=== PATIENT | female | born 1990 | race Caucasian/White ===

== ENCOUNTER 2018-02-08 08:10 | Outpatient (CLI) | payer MEDICAID ==
--- NOTE | 2018-02-08 09:10 | Ultrasound Report ---
Reason: TEST POSITIVE Procedure Date: 02/08/2018 Accession Number: [id number] / [id number] Procedure: US - OB First Trimester CPT Code: FULL RESULT: EXAM: FIRST TRIMESTER OBSTETRIC ULTRASOUND (Less than 11 weeks) EXAM DATE: 02/08/2018 08:56 AM. CLINICAL HISTORY: TEST POSITIVE. LMP: 12/15/2017. COMPARISONS: None. TECHNIQUE: Transabdominal and transvaginal ultrasound examination with static image documentation. CLINICAL DATES: EGA 7 weeks 6 days with LISA 09/21/2018 based on LMP. ASSESSMENT: Gestational Sac: Single intrauterine. Normal shape. Mean gestational sac diameter: 17.4 mm = 6 weeks 0 days. Embryo: CRL (crown-rump length) 10.8 mm = 7 weeks 1 day (LISA 09/26/2018). Cardiac activity: 137 beats per minute. Yolk sac: 3.2 mm. Amniotic fluid: Not accurately assessed at this gestational age. Early placenta: Not visible at this gestational age. Other: There is a small perigestational fluid collection measuring 21 x 3 x 11 mm. MATERNAL STRUCTURES: Uterus: Anteverted. Unremarkable. Cervix: Closed. Right Ovary/Adnexa: The ovary measures 3.5 x 2.7 x 2.4 cm, volume 11.9 cc. Simple appearing cyst measuring 2.5 cm. Left Ovary/Adnexa: The ovary measures 1.8 x 1.8 x 1.5 cm, volume 2.5 cc. Unremarkable. Free Fluid: Trace free pelvic fluid may be physiologic. Other: None. IMPRESSION: 1. Single viable intrauterine at EGA 7 weeks 1 day with LISA 09/26/2018 based on crown-rump length, which is concordant with clinical dates (EGA 7 weeks 6 days, LISA 09/21/2018 by LMP). 2. Assigned dating is LISA 09/21/2018 based on LMP. 3. Perigestational fluid collection is seen measuring 21 x 3 x 11 mm. RADIA
== END 2018-02-08 08:11 | disposition home or self-care (01) ==
LOC: DI 08:10
PROVIDERS: ATTEND Nurse Practitioner Obstetrics & Gynecology
DX: Z32.01 Encounter for pregnancy test, result positive (principal); Z3A.01 Less than 8 weeks gestation of pregnancy
CPT/HCPCS: 76801; 76817

== ENCOUNTER 2018-02-27 08:00 | Outpatient (CLI) | payer MEDICAID ==
[2018-02-27 18:29] LABS: MUDS CUTOFF CONCENTRATIONS CUTOFF CONC BELOW:
[2018-02-27 18:55] LABS: AMPHETAMINE SCREEN,URINE NEGATIVE (NEGATIVE); BENZODIAZEPINES SCREEN, URINE NEGATIVE (NEGATIVE); COCAINE SCREEN URINE NEGATIVE (NEGATIVE); METHADONE SCREEN, URINE NEGATIVE (NEGATIVE); METHAMPHETAMINES SCREEN, URINE NEGATIVE (NEGATIVE); OPIATE SCREEN, URINE NEGATIVE (NEGATIVE); TRICYCLIC ANTIDEPRESSANT,URINE NEGATIVE (NEGATIVE)
[2018-02-27 18:56] LABS: OXYCODONE SCREEN, URINE NEGATIVE (NEGATIVE); PROPOXYPHENE SCREEN, URINE NEGATIVE (NEGATIVE)
== END 2018-02-27 23:59 | disposition home or self-care (01) ==
LOC: LAB.R 08:00
PROVIDERS: ATTEND Nurse Practitioner Obstetrics & Gynecology
DX: Z36.89 Encounter for other specified antenatal screening (principal)
CPT/HCPCS: 80306; 87491; 87591

== ENCOUNTER 2018-02-27 11:12 | Outpatient (CLI) | payer MEDICAID ==
[2018-02-27 11:50] LABS: BASOPHILS # (AUTO) 0.1 10^3/uL (0.0-0.1); BASOPHILS % (AUTO) 0.6 %; EOSINOPHILS % (AUTO) 0.3 %; HGB - HEMOGLOBIN 14.9 g/dL (12.0-16.0); LYMPHOCYTES # (AUTO) 2.6 10^3/uL (1.5-3.5); LYMPHOCYTES % (AUTO) 25.8 %; MEAN CORPUSCULAR HEMOGLOBIN 31.6 pg (27.0-31.0); MEAN CORPUSCULAR HGB CONC 35.5 g/dL (32.0-36.0); MONOCYTES # (AUTO) 0.4 10^3/uL (0.0-1.0); NEUTROPHILS # (AUTO) 7.1 10^3/uL (1.5-6.6); NEUTROPHILS % (AUTO) 69.3 %; PLT - PLATELET COUNT 295 10^3/uL (130-450); RED BLOOD COUNT 4.71 10^6/uL (4.20-5.40); RED CELL DISTRIBUTION WIDTH 12.9 % (12.0-15.0); WHITE BLOOD COUNT 10.2 x10^3/uL (4.8-10.8)
[2018-02-27 11:58] LABS: BILIRUBIN,URINE NEGATIVE (NEGATIVE); GLUCOSE, URINE (UA) NEGATIVE (NEGATIVE); KETONES,URINE (UA) NEGATIVE (NEGATIVE); LEUKOCYTE ESTERASE, URINE NEGATIVE (NEGATIVE); NITRITE,URINE NEGATIVE (NEGATIVE); OCCULT BLOOD,URINE NEGATIVE (NEGATIVE); PH,URINE 5.5 PH (5.0-7.5); PROTEIN,URINE NEGATIVE (NEGATIVE); UROBILINOGEN,URINE 0.2 (NORMAL) E.U./dL (NORMAL)
[2018-02-27 12:04] LABS: CLARITY,URINE CLEAR (CLEAR)
[2018-02-27 12:06] LABS: HB2 TOTAL 16.3 g/dL; HEMOGLOBIN A1C 0.46 g/dL; HEMOGLOBIN A1C % 4.7 % (4.6-6.2)
[2018-02-28 11:05] LABS: HIV AG/AB 4TH GEN NON-REACTIVE (NON-REACTIVE)
[2018-03-02 15:38] LABS: HEPATITIS B SURFACE ANTIGEN NON-REACTIVE (NON-REACTIVE); HEPATITIS C ANTIBODY NON-REACTIVE (NON-REACTIVE)
== END 2018-02-27 11:13 | disposition home or self-care (01) ==
LOC: LAB 11:12
PROVIDERS: ATTEND Nurse Practitioner Obstetrics & Gynecology
DX: Z36.89 Encounter for other specified antenatal screening (principal)
CPT/HCPCS: 36415; 80306; 81001; 81003; 81599; 83036; 85025; 86762; 86803; 86850; 86900; 86901; 87086; 87340; 87389; 87491; 87591

== ENCOUNTER 2018-04-17 08:00 | Outpatient (CLI) | payer MEDICAID | END 2018-04-17 23:59 | LOC: LAB.R 08:00 | PROVIDERS: ATTEND Registered Nurse | DX: O46.92 Antepartum hemorrhage, unspecified, second trimester (principal) | CPT/HCPCS: 87491; 87591 ==

== ENCOUNTER 2018-07-30 16:20 | Outpatient (CLI) | payer MEDICAID ==
[2018-07-30 18:00] LABS: BASOPHILS % (AUTO) 0.5 %; EOSINOPHILS % (AUTO) 0.4 %; HGB - HEMOGLOBIN 12.7 g/dL (12.0-16.0); LYMPHOCYTES # (AUTO) 2.9 10^3/uL (1.5-3.5); LYMPHOCYTES % (AUTO) 27.6 %; MEAN CORPUSCULAR HEMOGLOBIN 29.4 pg (27.0-31.0); MEAN CORPUSCULAR HGB CONC 33.4 g/dL (32.0-36.0); MEAN PLATELET VOLUME 7.9 fL (7.9-10.8); MONOCYTES # (AUTO) 0.7 10^3/uL (0.0-1.0); MONOCYTES % (AUTO) 6.4 %; NEUTROPHILS # (AUTO) 6.9 10^3/uL (1.5-6.6); NEUTROPHILS % (AUTO) 65.1 %; PLT - PLATELET COUNT 369 10^3/uL (130-450); RED CELL DISTRIBUTION WIDTH 13.3 % (12.0-15.0); WHITE BLOOD COUNT 10.6 x10^3/uL (4.8-10.8)
[2018-07-30 18:11] LABS: ALBUMIN 2.7 g/dL (3.2-5.5); ALBUMIN/GLOBULIN RATIO 0.7 (1.0-2.2); BILIRUBIN,TOTAL 0.3 mg/dL (0.2-1.0); CALCIUM 9.1 mg/dL (8.5-10.3); CREATININE 0.6 mg/dL (0.4-1.0); TOTAL PROTEIN 6.8 g/dL (6.7-8.2)
== END 2018-07-30 16:21 | disposition home or self-care (01) ==
LOC: LAB 16:20
PROVIDERS: ATTEND Registered Nurse
DX: O26.899 Other specified pregnancy related conditions, unspecified trimester (principal); R03.0 Elevated blood-pressure reading, without diagnosis of hypertension
CPT/HCPCS: 36415; 80053; 82950; 85025; 86850

== ENCOUNTER 2018-08-05 13:44 | Outpatient (CLI) | payer MEDICAID ==
[2018-08-05 14:40] LABS: CREATININE,URINE 70.6 mg/dL
== END 2018-08-05 13:45 | disposition home or self-care (01) ==
LOC: LAB 13:44
PROVIDERS: ATTEND Registered Nurse
DX: R03.0 Elevated blood-pressure reading, without diagnosis of hypertension (principal)
CPT/HCPCS: 82570; 84156

== ENCOUNTER 2018-08-26 08:00 | Outpatient (CLI) | payer MEDICAID | END 2018-08-26 23:59 | disposition home or self-care (01) | LOC: LAB.R 08:00 | PROVIDERS: ATTEND Nurse Practitioner Obstetrics & Gynecology | DX: Z36.85 Encounter for antenatal screening for Streptococcus B (principal) | CPT/HCPCS: 87797 ==

== ENCOUNTER 2018-09-24 02:09 | Inpatient (IN) | payer SELFPAY ==
[2018-09-24] MEDS ORDERED: SODIUM CHLORIDE FLUSH 0.9% 10 ML SYRINGE IVP PRN (04:25)
[2018-09-24] MEDS ORDERED: AMPICILLIN 2 GM in SODIUM CHLORIDE 0.9% MINIBAG 100 ML IV ONE (04:25)
[2018-09-24] MEDS ORDERED: LACTATED RINGERS 1,000 ML IV ONE (04:31)
[2018-09-24 04:41] LABS: BASOPHILS % (AUTO) 0.2 %; EOSINOPHILS % (AUTO) 0.2 %; HGB - HEMOGLOBIN 13.6 g/dL (12.0-16.0); LYMPHOCYTES % (AUTO) 30.1 %; MEAN CORPUSCULAR HEMOGLOBIN 29.7 pg (27.0-31.0); MEAN CORPUSCULAR HGB CONC 33.6 g/dL (32.0-36.0); MEAN CORPUSCULAR VOLUME 88.4 fL (81.0-99.0); MEAN PLATELET VOLUME 10.6 fL (7.9-10.8); MONOCYTES # (AUTO) 0.7 10^3/uL (0.0-1.0); NEUTROPHILS # (AUTO) 8.5 10^3/uL (1.5-6.6); NEUTROPHILS % (AUTO) 63.9 %; PLT - PLATELET COUNT 248 10^3/uL (130-450); RED BLOOD COUNT 4.58 10^6/uL (4.20-5.40); RED CELL DISTRIBUTION WIDTH 13.1 % (12.0-15.0); WHITE BLOOD COUNT 13.2 x10^3/uL (4.8-10.8)
[2018-09-24] MEDS ORDERED: OXYTOCIN/SODIUM CHLORIDE 500 ML IV ONE (04:46)
[2018-09-24] MEDS ORDERED: LACTATED RINGERS 1,000 ML IV SCH (05:00)
[2018-09-24] MEDS ORDERED: fent/BUPIV 2 MCG/0.125% 250 ML EP ONE (05:04)
--- NOTE | 2018-09-24 05:08 | ANESTHESIA ---
Pre-Anesthesia VS, & Labs - Diagnosis active labor - Procedure labor epidural Vital Signs: Temp Pulse Resp BP Pulse Ox 36.7 C 86 16 132/82 H 100 09/24/18 02:20 09/24/18 02:20 09/24/18 02:20 09/24/18 02:20 09/24/18 02:20 Height 5 ft 2 in Weight (kg) 99.337 kg - NPO >8 hours - Is Patient ?: Yes - Lab Results Current Lab Results: Laboratory Tests 09/24/18 04:33: WBC 13.2 H, RBC 4.58, Hgb 13.6, Hct 40.5, MCV 88.4, MCH 29.7, MCHC 33.6, RDW 13.1, Plt Count 248, MPV 10.6, Neut # (Auto) 8.5 H, Lymph # (Auto) 4.0 H, [place] # (Auto) 0.7, Eos # (Auto) 0.0, Baso # (Auto) 0.0, Absolute Nucleated RBC 0.00, Nucleated RBC % 0.0 Fish Bones: 09/24/18 04:33 Home Medications and Allergies Active Medications Ampicillin Sodium 1 gm/ Sodium (Chloride) 100 mls @ 200 mls/hr IV Q4H BRAYDEN Ampicillin Sodium 2 gm/ Sodium (Chloride) 100 mls @ 100 mls/hr IV ONCE ONE Stop: 09/24/18 05:24 Last Admin: 09/24/18 04:45 Dose: 100 mls/hr Lactated Ringer's (Lr) 1,000 mls @ 150 mls/hr IV .Q6H40M BRAYDEN Sodium Chloride (Normal Saline Flush 0.9%) 10 ml IVP PRN PRN PRN Reason: NEEDED PER PROVIDER ORDERS Sodium Chloride (Normal Saline Flush 0.9%) 10 ml IVP 0100,0900,1700 [facility] Allergies/Adverse Reactions: Allergies Allergy/AdvReac Type Severity Reaction Status Date / Time No Known Drug Allergies Allergy Verified 09/24/18 04:39 Anes History & Medical History - Anesthetic History Anesthesia Complications: reports: No previous complications Family history of Anesthesia Complications: Denies Family history of Malignant Hyperthermia: Denies - Medical History Smoking Status: Never smoker Exam General: Alert, Oriented x3, Cooperative, No acute distress Dental: WNL Mouth Openin Fingerbreadth Neck Mobility: Normal Mallampati classification: II Thyromental Distance: greater than 6 cm Respiratory: Lungs clear, Normal breath sounds, No respiratory distress, No accessory muscle use Cardiovascular: Regular rate, Normal S1, Normal S2, No murmurs Plan Anesthesia Type: Epidural Consent for Procedure(s) Verified and Reviewed: No Code Status: Attempt Resuscitation ASA classification: 2-Mild systemic disease Is this case an emergency?: No
--- NOTE | 2018-09-24 05:28 | HISTORY & PHYSICAL EXAMINATION ---
Admit History - Visit Reason Visit Reason: Contractions - : 3 Parity: 2 Premature: 0 Ectopic: 0 : 0 Care: positive: [facility] Risk/History: positive: None Complications This : positive: None Smoking Status: Former smoker - Mother's Labs Mother's Blood Type: positive: A Mother's RH: positive: Positive GBS: positive: Group B Strep Positive Rubella Status: positive: Equivocal Meds/Allgy - Allergies Allergies/Adverse Reactions: Allergies Allergy/AdvReac Type Severity Reaction Status Date / Time No Known Drug Allergies Allergy Verified 09/24/18 04:39 Review of Systems - Constitutional Constitutional: denies: Fatigue, Fever, Chills, Malaise - Eyes Eyes: denies: Blurred vision, Spots in vision, Dipolpia - Cardiovascular Cariovascular: denies: Chest pain - Respiratory Respiratory: denies: Cough, Wheezing, SOB at rest - Gastrointestinal Gastrointestinal: denies: Abdominal pain, Constipation, Diarrhea, Nausea, Vomiting - Integumentary Integumentary: denies: Rash, Pruritis - Neurological Neurological: denies: Headache - Psychiatric Psychiatric: denies: Depression, Anxiety Physical - Abdominal Exam Vital Signs: Temp Pulse Resp BP Pulse Ox 36.7 C 86 16 132/82 H 100 09/24/18 02:20 09/24/18 02:20 09/24/18 02:20 09/24/18 02:20 09/24/18 02:20 Contraction Intensity: positive: Strong Uterine Resting Tone: positive: Soft - Monitoring Heart Rate Baseline: 140 Strip Review: positive: Category I - Presentation Presentation: positive: Vertex - Vaginal Exam Membranes: positive: Membranes intact Dilation (in cm): 5 Effacement (%): 90 Station: positive: -1 - Speculum Exam Speculum Exam Performed: positive: No Plan for Labor - Plan For Labor I expect patient to be DC'd or transferred within 96 hours.: Yes Plan for Labor: HPI: This 28yo @ 40.3wks gestation presented to [facility] with c/o contractions. Upon arrival she was noted to contract somewhat irregularly. She was monitoring x 1 hour and cervical examination was repeated and was 5-6/100/- 1, vertex. She was admitted to [facility] for expectant management. Keegan has been a patient of [facility] for the duration of her which has remained uneventful. Of note, she did not complete her 28 week labs and 1 hour GTT and stated she had not done this with her previous pregnancies either. She did agree to monitor her blood glucose and reported that her values were all WNL although she was unable to produce any hard copy of a log. She also refused to complete the FAS ultrasound at 20wks gestation. She was also noted to have rubella equivocal status for which she will receive MMR prior to discharge from the hospital following delivery, in addition to GBS positive status for which she will receive intrapartum prophylaxis with antibiotics per protocol. Dating criteria: LMP 12/15/2017 Initial Ultrasound @ 7.1wks- agrees Serial Exams - agree OB Hx: G1: 2010 SAB G2: 01/2013, @ 39.0wks, 23.5hr labor, Male, 7lb 7oz, unmedicated @ [facility]. Florentin G3: 04/2015, @ 41wks, 12 hour labor, Male 7lb 14oz, unmedicated @ [facility]. Julio Cesar G4: Current PMHx: No significant Surgical Hx: Hernia repair @ infancy Social Hx: Former smoker, never used smokeless tobacco, no ETOH or IVDA. Partner Franzt - his first baby. Family Hx: Anxiety - mother; Asthma - mother; Heart disease - mother; depression - mother Physical Exam: Normocephalic, atraumatic Heart RRR w/o M/G/R Lungs CTAB Abdomen gravid, soft, nontender EFW 3200g SVE 5-6/100/-1, vertex Bilateral LE's no edema Ultrasounds: 02/08/2018 @ 7.3wks gestation reveals SIUP c/w LMP dating Declined FAS labs: Hgb 12.7; Hct 37.9; PLT 369 A positive; antibody negative Rubella equivocal Hep B neg GC/CT neg HIV neg Pap 02/2015 WNL Immunizations: Influenza - declined Tdap 07/30/2018 Assessment: 28yo @ 40.3wks gestation GBS positive Active labor Plan: Admit for expectant management Epidural per maternal request Anticipate spontaneous vaginal delivery.
[2018-09-24] MEDS ORDERED: fent/BUPIV 2 MCG/0.125% 250 ML EP PRN (05:51)
[2018-09-24] MEDS ORDERED: ONDANSETRON 4 MG/2 ML VIAL IVP PRN (05:51)
[2018-09-24] MEDS ORDERED: diphenhydrAMINE INJ 50 MG/ML VIAL IVP PRN (05:51)
[2018-09-24] MEDS ORDERED: NALOXONE 0.4 MG/ML VIAL IVP PRN (05:51)
[2018-09-24] MEDS ORDERED: METOCLOPRAMIDE 10 MG/2 ML VIAL IVP PRN (05:51)
[2018-09-24] MEDS ORDERED: NALBUPHINE 10 MG/ML AMP IVP PRN (05:51)
[2018-09-24] MEDS ORDERED: ePHEDrine 50 MG/ML VIAL IVP PRN (05:51)
[2018-09-24] MEDS ORDERED: LACTATED RINGERS 500 ML IV ONE (05:51)
[2018-09-24] MEDS ORDERED: ePHEDrine 50 MG/ML VIAL IVP ONE (05:58)
--- NOTE | 2018-09-24 07:23 | PROVIDER PROGRESS NOTE ---
Labor Progress Note - Uterine Monitoring Uterine Monitoring Mode: positive: External toco Contraction Frequency (min/apart): 2 Contraction Intensity: positive: Strong Uterine Resting Tone: positive: Soft - Monitoring Monitor Mode: positive: External ultrasound Heart Rate Baseline: 160 Heart Rate Variability: positive: Moderate (6-25 bmp) Accelerations: positive: Absent Decelerations: positive: None Strip Review: positive: Category I - Vaginal Exam Dilation (in cm): 9 Effacement (%): 100 Station: 0 - Labor Progress Note Labor Progress Note/Additional Text: S: Patient comfortable with epidural in place. She is currently in a left sidelying position in attempt to rotate fetus to an OA position as baby is currently OP. Mood is good. Partner and family supportive at the bedside. O: FHR baseline 160, moderate variability, no accels, no decels Contractions palpate firm every 2 min with soft resting tone SVE 9/100/0, vertex AROM moderate amount of clear fluid A: 28yo @ 40.3wks gestation by LMP c/w 8wk U/S Active labor GBS positive s/p 1 loading dose of ampicillin FHR Category I P: Continue expectant management Rotate left lateral to encourage optimal positioning x 30 min Reposition to high fowlers to reduce cervix x 30 min Anticipate spontaneous vaginal delivery.
[2018-09-24] MEDS: OXYTOCIN/SODIUM CHLORIDE 500 ML IV PRN ×2 (08:15→09:13)
[2018-09-24] MEDS ORDERED: AMPICILLIN 1 GM in SODIUM CHLORIDE 0.9% MINIBAG 100 ML IV SCH (08:30)
--- NOTE | 2018-09-24 08:41 | DELIVERY NOTE ---
Delivery Note - Labor Labor: positive: Augmented by ARM - Infant Delivery Method Delivery Method: positive: Spontaneous vaginal delivery - Presentation Presentation: positive: Vertex, CHRISTIE - right occiput anterior - Nuchal Cord Nuchal Cord: positive: Present, Reduced - Amniotic Fluid Description Amniotic Fluid Description: positive: Clear - Episiotomy Type Episiotomy Type: positive: None - Laceration Laceration: positive: None - Delivery Outcome Delivery Outcome: positive: Livebirth - [place]: positive: Placed in direct skin contact with mother, Bulb syringe, Stimulated - Cord Cord: positive: 3 vessels - Placenta Placenta: positive: Intact, Spontaneous - Estimated Blood Loss Estimated Blood Loss (in cc): 150 - Post Delivery Events Post Delivery Events: positive: No post delivery events - Delivery Comments (Free Text/Narrative) Delivery Comments (Free Text/Narrative): This 28yo @ 40.3wks gestation by LMP c/w 8wk US presented to [facility] on 09/24/2018 at approximately 0300 with complaints of contractions. Upon arrival she was noted to be 3/100/-1, vertex with intact membranes. She was monitored x 1 hour and repeat SVE 5-6/100/-1. Patient was admitted for expectant management. FHR pattern demonstrated Category I pattern throughout labor. Epidural placed per maternal request. AROM occurred at 0618 and was noted to be a moderate amount of clear fluid. Patient progressed to c/c/+1 @ 0803. : Normal of viable male at 0814 on 09/24/2018. Nuchal cord x 1 reduced. Apgars 8/9 at 1 and 5 min respectively. The was placed on maternal abdomen, stimulated, dried, and placed skin to skin. Pitocin administered via IV for hemostasis. The umbilical cord was allowed to stop pulsating at which time it was doubly clamped by CNM and cut by FOB. Cord blood was obtained. Placenta delivered spontaneously and intact at 0820. 3VC. EBL 150mL. Uterine fundus firm and there is no excessive bleeeding. The perineum, vagina, and cervix were inspected and found to be intact. initiated. Family bonding well. Both mother and baby were left in stable condition.
[2018-09-24] MEDS ORDERED: WITCH HAZEL/GLYCERIN 1 PAD TOP PRN (08:42)
[2018-09-24] MEDS ORDERED: MEASLES,MUMPS & RUBELLA VACC 0.5 ML VIAL SUBQ ONE (08:42)
[2018-09-24] MEDS ORDERED: HYDROCORTISONE 1% CREAM 28 GM TUBE PR PRN (08:42)
[2018-09-24] MEDS ORDERED: SODIUM CHLORIDE FLUSH 0.9% 10 ML SYRINGE IVP SCH (09:00)
[2018-09-24] MEDS: ACETAMINOPHEN 500 MG TABLET PO SCH (12:27)
[2018-09-24] MEDS: DOCUSATE SODIUM 100 MG CAPSULE PO SCH (12:27)
[2018-09-24] MEDS: IBUPROFEN 800 MG TABLET PO SCH (12:27)
[2018-09-25] MEDS: ACETAMINOPHEN 500 MG TABLET PO SCH (01:21)
[2018-09-25] MEDS: IBUPROFEN 800 MG TABLET PO SCH (01:21)
[2018-09-25] MEDS: DOCUSATE SODIUM 100 MG CAPSULE PO SCH (01:22)
[2018-09-25 08:54] VITALS: BP 131/92
--- NOTE | 2018-09-25 09:34 | Discharge Plan ---
Discharge Plan Problem Reviewed?: Yes Disposition: Home, Self Care Condition: Good Diet: Regular Activity Restrictions: No Restrictions Shower Restrictions: No Driving Restrictions: No Weight Bearing: Full Weight No Smoking: If you smoke, Please STOP! Call for help. Follow-up with: Adelaida Gaona CNM, ARNP [Provider Admit Priv/Credential] -
[2018-09-25] MEDS ORDERED: MEASLES,MUMPS & RUBELLA VACC 0.5 ML VIAL SUBQ ONE (10:00)
--- NOTE | 2018-09-25 11:50 | Labor Flowsheet ---
Labor Flowsheet Datetime Report Generated by CPN: 09/25/2018 11:50 Datetime: 09/25/2018 08:06 VITAL SIGNS NBP Sys/Elvia/Mean (mmHg): 131 : 92 : 100 Pulse: 93 LaborFlag: Labor Datetime: 09/24/2018 23:40 SpO2 (%): 91 Datetime: 09/24/2018 08:13 UTERINE ACTIVITY Monitor Mode: External Frequency (min): 2-3 Quality: Strong Duration (sec): 60-100 Pattern: Normal: <= 5 Contractions in 10 Minutes Resting Tone (Palpate): Relaxed ASSESSMENT A Monitor Mode: Telemetry FHR Baseline Rate : 160 FHR Baseline Changes: No Baseline Change Variability: Moderate 6-25 bpm Accelerations: 15X15 Decelerations: Variable Category: Category II Comments: interupped strip due to pt pushing Oxygen Method: Room Air Datetime: 09/24/2018 08:07 Pushing Progress: Descent with Pushing Datetime: 09/24/2018 08:06 STAGE 2 Pushing: Urge to Push Pushing Position: Pushing with Contractions Datetime: 09/24/2018 08:03 VAGINAL EXAM Dilatation (cm): 10.0 Effacement (%): 100 Station: 1 Exam by: elham ascencio rn Vaginal Bleeding: None Cervix, Consistency: Soft Cervix, Position: Anterior Datetime: 09/24/2018 08:02 COMMUNICATION Communication: Provider at Bedside Datetime: 09/24/2018 07:44 Pain Assessment Comments: pt feels pressure but no pain Datetime: 09/24/2018 07:42 Respirations: 16 Datetime: 09/24/2018 07:39 Temperature (C): 36.7 Datetime: 09/24/2018 07:08 Patient Care Comments: thrown/frog legs Datetime: 09/24/2018 06:50 Pain Presence: Intermittent Pain Type: Contraction Pain Location: Abdomen Datetime: 09/24/2018 06:45 Patient Position/Activity: Left Extreme Datetime: 09/24/2018 06:18 Membrane Status: Ruptured Membranes Rupture Method: Artificial Amniotic Fluid Color: Clear Amniotic Fluid Amount: Small Amniotic Fluid Odor: Normal Datetime: 09/24/2018 06:02 Provider Notified (Name): A. Jimenez, CNM Communication Comments: @ bedside to attend delivery Datetime: 09/24/2018 06:00 Contraction Comments: coupleting noted Actions for Decelerations: Side to Side Datetime: 09/24/2018 05:58 Monitor Interventions for FHR: Ultrasound Adjusted Datetime: 09/24/2018 05:47 Medication Comments: ephedrine 10 mg Datetime: 09/24/2018 05:45 Epidural Procedure Other: Pump Started Datetime: 09/24/2018 05:25 Stage of : Labor Datetime: 09/24/2018 05:22 ANESTHESIA Epidural Procedure: Test Dose Anesthesia Comments: catheter placed Datetime: 09/24/2018 05:13 PROCEDURE TIME OUT Procedure Verify: Correct Patient Identity; Correct Side and Site are Marked Datetime: 09/24/2018 04:51 TEACHING Instructional Method: Verbal Plan of Care: Plan of Care Discussed; Vaginal Delivery Pain Management: Epidural Datetime: 09/24/2018 04:48 MEDICATIONS Antibiotics: Ampicillin IV 2 Gm Datetime: 09/24/2018 04:38 PAIN Pain Scale: 8 Pain Relief Measures: Comfort Measures Pain Coping: Talking Through Contractions MATERNAL ASSESSMENT Level of Consciousness: Fully Conscious DTR's/Clonus: DTRs 2+; No Clonus Headache: Denies Breath Sounds, Left: Clear and Equal Breath Sounds, Right: Clear and Equal Nausea/Vomiting: Denies RUQ Epigastric Pain: Denies PATIENT CARE IV/Blood Work: IV Started; Labs Drawn with IV Start Comfort Measures: Breathing/Relaxation Unit Routine: Champion to Room Labor/Induction: Labor Stages Medications: Antibiotics
--- NOTE | 2018-09-25 17:35 | PROVIDER PROGRESS NOTE ---
Subjective - Subjective Subjective: S: Bonding well with baby. without difficulty. Pain well controlled with oral medications. Bleeding decreased and is light. Partner supportive at the bedside. They are anxious to get to go home today. O: Heart RRR w/o M/G/R, lungs CTAB, bilateral LE's no edema. Abdomen soft and nontender with fundus firm at U-1. Perineum intact. Mood is good. A: 28yo PPD #1 s/p TSVD of viable male Perineum intact P: Reviewed pp self care and warning s/sx. Advised daily PNV while Advised continuation of PO ibuprofen and tylenol for pain management PRN. She intends to f/u with myself in [facility]. She denies further questions or concerns today. Objective - Vital Signs/Intake & Output Intake & Output: Intake & Output 09/22/18 09/23/18 09/24/18 09/25/18 23:59 23:59 23:59 23:59 Intake Total 1750 250 Output Total 700 Balance 1050 250 - Lab Results Fish Bones: 09/24/18 04:33
--- NOTE | 2018-09-26 08:33 | DISCHARGE SUMMARY ---
Physician: LEVI Lebron DATE OF ADMISSION: 09/24/2018 DATE OF DISCHARGE: 09/25/2018 DIAGNOSES ON ADMISSION 1. A 28-year-old G4, P2-0-1-2 at 40.3 weeks gestation. 2. Active labor. 3. Group B streptococcus positive. DIAGNOSES ON DISCHARGE 1. A 28-year-old G4, P3-0-1-3, status post spontaneous vaginal delivery on 09/24/2018 2. Normal recovery. 3. . BRIEF HISTORY: She is a patient of [facility] who presented on 09/24/2018 with comp laints of contractions. The patient was found to contract every 2-4 minutes and her cervix was 3 cm dilated, 100% effaced, and -1 station, vertex position with intact membranes. She was monitored for 1 hour and repeat cervical exam revealed 5-6 cm, 100% effaced, and -1 station. She progressed to spo ntaneously deliver a viable male infant at 0814 on 09/24/2018. Apgars were 8 and 9 at 1 and 5 minute s respectively. EBL 150 mL The perineum, vagina and cervix were inspected and found to be intact. She has been doing well in her course. She is ambulating and tolerating a regular diet. She is urinating without difficulty and her lochia is normal. Her pain is well controlled with oral medications. She will be discharged home today on day #1 with instructions to take ibupro fen and Tylenol [id number] p.o. for pain management. She intends to followup with myself at [facility] in 3 weeks for routine visit. She has been given precautions to call if she has any worsening fevers, chills, abdominal pain, increased bleeding or foul-smelling va ginal lochia. TD: 09/26/2018 08:09
== END 2018-09-25 11:40 | disposition home or self-care (01) | DRG 807 ==
LOC: WFO 02:09 → FBP 02:10 → WFO 04:18 → UNDOADMIN 04:19 → FBP 04:19
PROVIDERS: ADMIT Nurse Practitioner Obstetrics & Gynecology; ATTEND Nurse Practitioner Obstetrics & Gynecology
PROC: 10E0XZZ Delivery of Products of Conception, External Approach (ICD-10-PCS; principal; 2018-09-24)
PROC: 10907ZC Drainage of Amniotic Fluid, Therapeutic from Products of Conception, Via Natural or Artificial Opening (ICD-10-PCS; 2018-09-24)
DX: O99.824 Streptococcus B carrier state complicating childbirth (principal); Z37.0 Single live birth; O69.81X0 Labor and delivery complicated by cord around neck, without compression, not applicable or unspecified; Z3A.40 40 weeks gestation of pregnancy; Z87.891 Personal history of nicotine dependence; Z28.3 Underimmunization status
CPT/HCPCS: 85025; A9270; J7120; 99213

== ENCOUNTER 2019-10-01 10:08 | Outpatient (CLI) | payer MEDICAID ==
[2019-10-01 11:39] LABS: BASOPHILS % (AUTO) 0.6 %; EOSINOPHILS % (AUTO) 0.3 %; LYMPHOCYTES # (AUTO) 1.6 10^3/uL (1.5-3.5); LYMPHOCYTES % (AUTO) 23.7 %; MEAN CORPUSCULAR HEMOGLOBIN 29.4 pg (27.0-31.0); MEAN CORPUSCULAR HGB CONC 33.9 g/dL (32.0-36.0); MEAN CORPUSCULAR VOLUME 86.7 fL (81.0-99.0); MEAN PLATELET VOLUME 10.9 fL (7.9-10.8); MONOCYTES # (AUTO) 0.5 10^3/uL (0.0-1.0); NEUTROPHILS # (AUTO) 4.6 10^3/uL (1.5-6.6); NEUTROPHILS % (AUTO) 68.3 %; PLT - PLATELET COUNT 304 10^3/uL (130-450); RED BLOOD COUNT 5.11 10^6/uL (4.20-5.40); RED CELL DISTRIBUTION WIDTH 12.4 % (12.0-15.0); WHITE BLOOD COUNT 6.7 x10^3/uL (4.8-10.8)
[2019-10-01 11:56] LABS: ALBUMIN 4.6 g/dL (3.2-5.5); ALBUMIN/GLOBULIN RATIO 1.2 (1.0-2.2); BILIRUBIN,TOTAL 1.1 mg/dL (0.2-1.0); CALCIUM 9.4 mg/dL (8.5-10.3); CREATININE 0.9 mg/dL (0.4-1.0); TOTAL PROTEIN 8.4 g/dL (6.7-8.2)
== END 2019-10-01 23:59 | disposition home or self-care (01) ==
LOC: LAB.WCP 10:08
PROVIDERS: ATTEND Family Medicine
DX: R10.9 Unspecified abdominal pain (principal)
CPT/HCPCS: 36415; 80053; 82150; 83690; 85025

== ENCOUNTER 2019-10-04 09:43 | Outpatient (CLI) | payer MEDICAID ==
[2019-10-04 19:40] LABS: H. PYLORIS ANTIGEN STL NEGATIVE (Negative)
== END 2019-10-04 23:59 | disposition home or self-care (01) ==
LOC: LAB.R 09:43
PROVIDERS: ATTEND Family Medicine
DX: R10.9 Unspecified abdominal pain (principal)
CPT/HCPCS: 87338; 87493

== ENCOUNTER 2019-10-10 08:59 | Outpatient (CLI) | payer MEDICAID ==
--- NOTE | 2019-10-10 11:45 | Ultrasound Report ---
PROCEDURE: Abdomen Complete INDICATIONS: ABD PAIN TECHNIQUE: Real-time scanning was performed of the abdominal and retroperitoneal organs, with image documentatio n. COMPARISON: None. FINDINGS: Limited evaluation secondary to body habitus. Liver: Liver is normal in size and heterogeneous in echotexture. 9 mm calcification within the super omedial aspect of the right lobe. Gallbladder: Demonstrates multiple calculi within its lumen. No wall thickening. Phyrgian cap is pres ent. Biliary ducts: Intrahepatic bile ducts are non-dilated. Extrahepatic bile duct caliber measures 4 m m. Normal is 6-7 mm or less in diameter, or 10 mm or less post-cholecystectomy. Pancreas: Pancreas is not well seen but within normal limits as visualized. Spleen: Spleen is normal in size and homogeneous in echotexture. Kidneys: Kidneys are normal in size and echotexture. Right kidney measures 10.0 cm long; left kidne y measures 10.2 cm long. No hydronephrosis or nephrolithiasis. No solid masses. Aorta: Visualized aorta is normal in caliber at less than 3 cm. Iliacs: Proximal common iliac arteries are normal in caliber at less than 2.5 cm. IVC: Intrahepatic inferior vena cava is patent. Miscellaneous: No free abdominal fluid. IMPRESSION: 1. Cholelithiasis without evidence of cholecystitis. 2. Heterogeneous hepatic echotexture, which could indicate cirrhosis or underlying mass lesions. This could be further assessed with contrast-enhanced CT, if clinically indicated. Reviewed by: Tucker Lay MD on 10/10/2019 11:43 AM PDT Approved by: Tucker Lay MD on 10/10/2019 11:43 AM PDT Station ID: [id number]
== END 2019-10-10 09:00 | disposition home or self-care (01) ==
LOC: DI 08:59
PROVIDERS: ATTEND Family Medicine
DX: K80.20 Calculus of gallbladder without cholecystitis without obstruction (principal); R93.2 Abnormal findings on diagnostic imaging of liver and biliary tract
CPT/HCPCS: 76700

== ENCOUNTER 2019-11-24 16:48 | Outpatient (CLI) | payer MEDICAID ==
[2019-11-24] MEDS ORDERED: IOVERSOL 320 100 ML VIAL IVP ONE ×2 (16:57→17:38)
--- NOTE | 2019-11-30 15:12 | CT Report ---
PROCEDURE: ABDOMEN W/WO INDICATIONS: ABD PAIN, ABNORMAL USD TECHNIQUE: CT images of the abdomen of the abdomen and pelvis obtained without IV contrast COMPARISON: Right upper quadrant ultrasound 10/10/2019. FINDINGS: Included lung bases are clear. Nonspecific aggregate of small calcifications in the liver spanning approximately 1.5 cm (series 4 im age 16). Otherwise unremarkable unenhanced appearance of the liver. Normal unenhanced appearance of the spleen, adrenal glands, and kidneys. There is no urinary tract ca lculus or hydronephrosis within the field of view. High density material within the gallbladder consistent and a mixture of sludge and stones stones. No findings of cholecystitis. No abnormally dilated loop of bowel within the [id number]. Nonaneurysmal abdominal aorta. No threshold and large intra-abdominal retroperitoneal lymph node. Included osseous structures unremarkable. IMPRESSION: Limited exam due to the lack of IV contrast. Nonspecific small calcifications in the liver spanning approximately 1.5 cm diameter. These could rep resent sequela prior granulomatous exposure although a partially calcified mass cannot be excluded, e specially given the lack of IV contrast. Liver protocol CT or MRI with contrast would be recommended for further evaluation. Cholelithiasis and gallbladder sludge. Reviewed by: Omar Putnam MD on 11/30/2019 3:11 PM PDT Approved by: Omar Putnam MD on 11/30/2019 3:11 PM PDT Station ID: [id number]
== END 2019-11-24 16:49 | disposition home or self-care (01) ==
LOC: DI 16:48
PROVIDERS: ATTEND Family Medicine
DX: R93.2 Abnormal findings on diagnostic imaging of liver and biliary tract (principal)
CPT/HCPCS: 74170; Q9967